=== PATIENT | male | born 1965 | race Caucasian/White ===

== ENCOUNTER 2025-01-20 11:00 | Emergency (ER) | payer OTHER ==
[~2025-01-20] VITALS: Ht 167.6 cm; Wt 67.6 kg
[2025-01-20 11:30] VITALS: BP 168/85; TEMP 98.2
[2025-01-20] MEDS ORDERED: PRED20TA PO (12:53)
[2025-01-20] MEDS ORDERED: FAMO20TA80 PO (12:53)
[2025-01-20] MEDS ORDERED: DIPH25TA62 PO (12:53)
[2025-01-20] MEDS ORDERED: ERYT3.5O9 EACHEYE (12:53)
[2025-01-20] MEDS ORDERED: CETI10CA8 PO (12:53)
[2025-01-20] MEDS ORDERED: cetrizine 10 MG TABLET ONE (13:04)
[2025-01-20] MEDS ORDERED: ERYTHROMYCIN BASE OPHTH 3.5 GM TUBE ONE (13:04)
[2025-01-20 13:07] VITALS: O2SAT 98
[2025-01-20] MEDS: ERYTHROMYCIN BASE OPHTH 3.5 GM TUBE OP ONE (13:07)
[2025-01-20] MEDS: cetrizine 10 MG TABLET PO ONE (13:07)
== END 2025-01-20 13:08 | disposition home or self-care (01) ==
LOC: ER 11:38
DX: H10.13 Acute atopic conjunctivitis, bilateral (principal); I10 Essential (primary) hypertension; E11.9 Type 2 diabetes mellitus without complications
CPT/HCPCS: 99284; J7512